=== PATIENT | female | born 2000 | race Caucasian/White ===

== ENCOUNTER 2023-05-27 20:07 | Emergency (ER) | payer SELFPAY ==
[~2023-05-27] VITALS: Ht 152.4 cm; Wt 65.0 kg
[2023-05-27 20:23] VITALS: BP 118/81; PULSE 97; TEMP 98.4; O2SAT 98
[2023-05-27 20:52] VITALS: RESP 16
== END 2023-05-27 21:55 | disposition home or self-care (01) ==
LOC: ER 20:11
DX: U07.1 COVID-19 (principal)
CPT/HCPCS: 36415; 87502; 87503; 87811; 99283

== ENCOUNTER 2023-05-30 16:06 | Emergency (ER) | payer MEDICAID ==
[~2023-05-30] VITALS: Ht 165.1 cm; Wt 68.2 kg
[2023-05-30 17:37] LABS: BILIRUBIN,URINE NEGATIVE (Neg); CLARITY,URINE CLOUDY (Clear); COLOR,URINE YELLOW (Yellow); GLUCOSE, URINE NEGATIVE (Neg); KETONES,URINE TRACE mg/dl (Neg); LEUKOCYTE ESTERASE ,URINE NEGATIVE (Neg); NITRITES, URINE NEGATIVE (Neg); OCCULT BLOOD,URINE NEGATIVE (Neg); PROTEIN,URINE NEGATIVE (Neg); UROBILINOGEN,URINE 0.2 E.U/dL (0.2-1.0)
[2023-05-30 17:38] LABS: PREOP URINE HCG NEGATIVE (NEGATIVE)
[2023-05-30 17:40] LABS: UA COLLECTION TYPE NON-SPECIFIED
[2023-05-30 17:55] LABS: MUCUS STRANDS MANY /LPF (Neg); SQUAMOUS EPITHELIAL CELL,UR MANY /LPF (FEW)
[2023-05-30 17:56] LABS: BACTERIA,URINE 2+ /HPF (Neg)
[2023-05-30 17:57] LABS: RBC,URINE 0-2 /HPF (0-2); YEAST MODERATE /HPF (NEGATIVE)
[2023-05-30] MEDS ORDERED: DIF150T PO (18:08)
[2023-05-30] MEDS ORDERED: CLOT30CR19 TOP (18:08)
[2023-05-30 18:13] VITALS: BP 115/78; PULSE 101; RESP 14; TEMP 97.8; O2SAT 99
== END 2023-05-30 18:20 | disposition home or self-care (01) ==
LOC: ER 16:07
DX: B37.31 Acute candidiasis of vulva and vagina (principal)
CPT/HCPCS: 81001; 81025; 99283